=== PATIENT | female | born 1965 | race Caucasian/White ===

== ENCOUNTER 2020-08-18 08:45 | Outpatient (CLI) | payer OTHER, SELFPAY ==
--- NOTE | ~2020-08-18 | MM_ITS ---
EXAMINATION: MM screening liliam BI w anabel HISTORY: Screening TECHNIQUE: Craniocaudal and mediolateral oblique 3-D tomosynthesis images were obtained and synthetic 2-D images were generated. CAD analysis was submitted and interpreted. COMPARISON: Comparison to multiple prior studies sequentially, with oldest reviewed study dated 05/31. BREAST PARENCHYMAL COMPOSITION: There are scattered areas of fibroglandular density. FINDINGS: There is no evidence of suspicious mass, calcification, or architectural distortion to sugg est malignancy in either breast. There has been no suspicious interval change. IMPRESSION: 1. No mammographic evidence of malignancy. 2. Recommend routine screening mammography in one year. BI-RADS Category 1: Negative Reviewed, dictated and finalized at location A.
== END 2020-08-18 08:46 | disposition home or self-care (01) ==
LOC: ANHIMG 08:49
PROVIDERS: PCP Family Medicine; Visit Provider Family Medicine
DX: Z12.31 Encounter for screening mammogram for malignant neoplasm of breast (principal)
CPT/HCPCS: 77063; 77067

== ENCOUNTER 2020-12-04 09:42 | Emergency (ER) | payer OTHER, SELFPAY ==
--- NOTE | ~2020-12-04 | XR_ITS ---
EXAMINATION: XR ankle LT 2V DATE: 12/04/2020 10:09 INDICATION: Lateral left ankle pain post fall on ice TECHNIQUE: Anteroposterior and lateral views of the left ankle were obtained. COMPARISON: None. FINDINGS: Alignment is normal. No fracture. Joint spaces are normal. Small Achilles and plantar calcaneal spurs . Prominent soft tissue swelling anterior and lateral to the ankle with left ankle joint effusion. IMPRESSION: 1. No acute osseous abnormality. Reviewed, dictated and finalized at location B. S RECRUITER
[2020-12-04 09:50] VITALS: BP 147/98; PULSE 79; RESP 16; TEMP 37.2; O2SAT 95
--- NOTE | 2020-12-04 10:17 | ED.FALL ---
HPI - Fall General Chief Complaint: Extremity Injury, Lower Stated Complaint: L ankle pain Source: patient Mode of arrival: ambulatory Limitations: no limitations History of Present Illness HPI Narrative: patient is a 55-year-old female with history of hypertension, while outside pouring salt on her driveway she slipped on a patch of ice twisting her left ankle causing swelling and tenderness the lateral malleolus radiating into her lateral lower leg has good range of motion although tender and painful, pain level is currently well controlled since she took some NSAIDs prior to her arrival. There is no numbness or tingling has good range of motion and a good strong brisk pedal pulse on the left. complaint: fall Onset (ago): hour(s) Fall from: standing Fall witnessed: no Place fall occurred: home Loss of consciousness: none Prolonged down time: no Symptoms prior to fall: none Context: tripped/slipped ( slipped on ice) Related Data Allergies Allergy/AdvReac Type Severity Reaction Status Date / Time prednisone Allergy Unknown Verified 04/06/18 12:16 No Known Allergies Allergy Unverified 07/11/19 17:29 Review of Systems Review of Systems: All systems reviewed & are unremarkable except as noted in HPI and below PMFSH Past Medical History Medical History HTN (hypertension) Family History Family History Mother Hypertension Sibling Hypertension Grandparent Family history of cardiovascular disease Social History Social History Smoking status: Never smoker Alcohol intake: never Exam Const: General: no acute distress Orientation/consciousness: patient oriented x3 HENMT: Head: normal to inspection Eyes: Conjunctivae: conjunctivae normal Pupils: Equal, round and reactive pupils present EOM: EOMs intact bilaterally Neck: Neck: normal visual inspection Chest: Chest palpation & inspection: normal inspection of the chest Resp: Effort & Inspection: normal respiratory effort Cardio: Rate: regular rate Rhythm: regular rhythm GI: GI Palp: Yes Soft to palpation : General: Yes no CVA tenderness Back/Spine/Pelvis: Back: no CVA tenderness Skin: General skin exam: normal color Rashes: no rashes Neuro: General: patient oriented x3 Extrem: Other: mild swelling in the lateral malleolus with some pain and tenderness with palpation although has a good brisk pedal pulse on the left, with no numbness or tingling. Psych: Mental Status: mental status grossly normal Course Course Emergency Course: Patient after reassessment currently continues to be comfortable pain level is around 2, declined any pain medicine since she took some ibuprofen prior to arrival, ice was placed x-ray reviewed with patient and Landon wrap placed and advised to follow-up with her doctor if symptoms persist or worsen. Vital Signs Vital signs: Vital Signs Temperature 37.2 C 12/04/20 09:50 Pulse Rate 79 12/04/20 09:50 Respiratory Rate 16 12/04/20 09:50 Blood Pressure 147/98 H 12/04/20 09:50 Pulse Oximetry 95 12/04/20 09:50 Temperature 37.2 C 12/04/20 09:50 Pulse Rate 79 12/04/20 09:50 Respiratory Rate 16 12/04/20 09:50 Blood Pressure 147/98 H 12/04/20 09:50 Pulse Oximetry 95 12/04/20 09:50 Critical Care Time Critical Care Time Critical Care Time: No Discharge Plan Discharge Clinical Impression: Ankle sprain and strain Patient Disposition: Home, Self-Care Condition: Stable Instructions: Antibiotic Form, Ankle Sprain (ED) Additional Instructions: continue Landon wrap, Motrin or Tylenol for pain and inflammation, keep elevated while at rest and continue ice. Follow-up with primary care physician if symptoms persist or worsen. Prescriptions: No Action amlodipine-benazepril 10-20 mg capsule 1 cap PO DAILY
[2020-12-04 10:25] VITALS: RESP 16
== END 2020-12-04 10:40 | disposition home or self-care (01) ==
PROVIDERS: Emergency Provider Emergency Medicine; PCP Family Medicine
DX: S93.402A Sprain of unspecified ligament of left ankle, initial encounter (principal); W01.0XXA Fall on same level from slipping, tripping and stumbling without subsequent striking against object, initial encounter
CPT/HCPCS: 73600; 99282; 99283

== ENCOUNTER → 2020-12-13 07:28 | Outpatient (CLI) | payer OTHER, SELFPAY ==
--- NOTE | ~2020-12-13 | MR_ITS ---
EXAMINATION: MR ankle LT wo con DATE: 12/13/2020 08:30 INDICATION: Strain of unspecified muscle and tendon at ankle and foot level. Left ankle pain. TECHNIQUE: Magnetic resonance imaging (MRI) of the left ankle was performed without intravenous contr ast. Sequences included sagittal PD-weighted FS FSE, sagittal PD-weighted FSE, coronal PD-weighted FS FSE, coronal PD-weighted FSE, axial PD-weighted FS FSE, and axial PD-weighted FSE. COMPARISON: Left ankle radiographs 12/04/2020 FINDINGS: Medial ankle ligaments: The superficial and deep components of the deltoid ligament are intact. Lateral ankle ligaments: There are changes of prior lateral ankle sprain characterized by increased signal in anterior talofib ular ligament and thickening and increased signal in calcaneofibular ligament and anterior tibiofibul ar ligament. Posterior talofibular ligament is normal. Posterior tibiofibular ligament is intact. Tendons: There is mild Achilles tendinopathy. There is mild tenosynovitis of posterior tibial tendon. The ante rior ankle tendons are normal. There is mild peroneus longus tendinopathy. Plantar fascia: Normal. There is an enthesophyte at the calcaneal attachment. Bones/other: There is a nondisplaced oblique fracture of distal fibula with medial aspect of the fracture line 2 m m distal to the level of the tibial plafond. There is bone marrow edema of posterior malleolus, consi stent with stress reaction. Fluid: There are small ankle and subtalar joint effusions. There is subcutaneous edema about the ankle and i n the dorsum of the foot. IMPRESSION: 1. Nondisplaced oblique fracture of distal fibula. 2. Changes of lateral ankle sprain. Reviewed, dictated and finalized at location A. L OFFICER
== END ==
PROVIDERS: PCP Family Medicine; Visit Provider Family Medicine
DX: S82.435A Nondisplaced oblique fracture of shaft of left fibula, initial encounter for closed fracture (principal)
CPT/HCPCS: 73721

== ENCOUNTER → 2021-03-02 10:04 | Outpatient (CLI) | payer OTHER, SELFPAY ==
--- NOTE | ~2021-03-02 | US_ITS ---
US abdomen limited INDICATION: Right upper quadrant abdominal pain PROCEDURE: Realtime right upper abdominal ultrasound. COMPARISON: No prior studies for comparison. FINDINGS: The pancreas is normal without focal mass or pancreatic ductal dilation. Echotexture is in creased, consistent with fatty infiltration. There is normal directional flow in the portal vein. The gallbladder is normal without stones, gallbladder wall thickening or pericholecystic fluid. Comm on bile duct measures 4 mm. No sonographic Ledezma's sign. IMPRESSION: 1: Hepatic steatosis. Reviewed, dictated and finalized at location B. IMPRESSION: 1: Hepatic steatosis.
== END ==
PROVIDERS: PCP Family Medicine; Visit Provider Physician Assistant Medical
DX: R10.11 Right upper quadrant pain (principal); K76.0 Fatty (change of) liver, not elsewhere classified
CPT/HCPCS: 76705

== ENCOUNTER 2021-03-12 06:57 | Outpatient (CLI) | payer OTHER, SELFPAY ==
--- NOTE | ~2021-03-12 | NM_ITS ---
EXAMINATION: NM hepatobiliary wo pharm DATE: 03/12/2021 09:28 INDICATION: Right upper quadrant abdominal pain COMPARISON: None. TECHNIQUE: 5.1 mCi Tc-99m mebrofenin (Choletec) was administered intravenously. Scintigraphic images of the abdomen were obtained for one hour. At the 1 hour time point, the patient drank 8 oz Ensure, and imaging was continued for 60 minutes. Gallbladder ejection fraction was calculated by the technol ogist. FINDINGS: There is normal clearance of radiotracer from the blood pool. There is homogeneous tracer u ptake by the liver. Activity progresses to the bowel and gallbladder. The gallbladder ejection fract ion (GBEF) is 61%. Note that with this technique, normal GBEF >= 33%. IMPRESSION: 1. Normal hepatobiliary scan. Reviewed, dictated and finalized at location A.
== END 2021-03-12 06:58 | disposition home or self-care (01) ==
PROVIDERS: PCP Family Medicine; Visit Provider Physician Assistant Medical
DX: R10.11 Right upper quadrant pain (principal)
CPT/HCPCS: 78226; A9537

== ENCOUNTER → 2021-06-12 01:09 | Outpatient (CLI) | payer OTHER, SELFPAY ==
[2021-06-13 00:10] LABS: SARS-CoV-2 RNA PCR Negative
== END ==
PROVIDERS: PCP Family Medicine; Visit Provider Internal Medicine Gastroenterology
DX: Z01.812 Encounter for preprocedural laboratory examination (principal); Z20.822 Contact with and (suspected) exposure to COVID-19
CPT/HCPCS: C9803; U0003; U0005

== ENCOUNTER 2021-06-15 03:18 | Day surgery (SDC) | payer OTHER, SELFPAY ==
[2021-06-11 13:47] VITALS: BMI 27.8
--- NOTE | 2021-06-12 17:40 | WPDANESEPP ---
Anes - Eval Pre Procedure Procedure: Operation Date: 06/15/21 14:00 Proposed Procedures p Esophagogastroduodenoscopy - Toni Ordoñez MD Date/Time: 06/12/21 17:40 Pre Op Diagnosis: GERD, Dysphagia Patient Data Age: 56 Gender: F Height: 1.65 m Weight: 76 kg Allergies Allergy/AdvReac Type Severity Reaction Status Date / Time COVID-19 vaccine, mRNA, AdvReac Intermediate trigeminal Verified 06/11/21 13:46 [id number], neuralgia [COVID-19 vaccine, ( left mRNA-1273, LNP-S] face) Home Medications Medication Instructions Recorded Confirmed Type omeprazole 40 mg capsule,delayed 40 mg PO .q am #90 cap 03/12/21 06/11/21 Rx release amlodipine-benazepril 1 cap PO DAILY 06/11/21 06/11/21 History Patient hx anesthesia problems: none Family hx anesthesia problems: none PMFSH Past Medical History Medical History Carpal tunnel syndrome Endometriosis, site unspecified HTN (hypertension) Sicca syndrome, unspecified Trigeminal neuralgia Surgical History Surgical History (Updated 06/12/21 @ 17:40 by Nnamdi Calvo DO) H/O total hysterectomy (~2016) History of appendectomy Family History Family History (Updated 05/18/21 @ 14:25 by Poonam Yoder MA) Mother Hypertension Sibling Hypertension Grandparent Family history of cardiovascular disease Lung cancer Hypertension Pancreatic lymphoma Social History Social History (Updated 05/18/21 @ 14:26 by Poonam Yoder MA) Smoking status: Never smoker Alcohol intake: never Substance use: never Gender identity (if verbalized by the patient): Female Spiritual care concerns: No Agree to blood products: Yes Exam Day of Procedure 06/12/21 17:40
[2021-06-15 11:49] VITALS: BP 134/83; PULSE 68; RESP 16; TEMP 36.2; O2SAT 97
--- NOTE | 2021-06-15 11:54 | WPDANESEFPP ---
Anes - Eval Final PreProcedure Day of Procedure 06/15/21 11:54 Patient weight: overweight Heart: regular rate and rhythm Lungs: clear to auscultation Airway: Mallampati scale class II Neurological: alert and oriented Last oral intake: >/= 8 hours ASA classification: II Emergent: no Anesthetic plan: proceed Anesthesia type and monitoring: general GIVS and standard monitoring Informed Consent: The patient's anesthetic plan and its attendant risks and benefits were discussed with the patient/family/POA. Questions were solicited and answers provided to the satisfaction of the patient/family/POA.
[2021-06-15] MEDS: LACTATED RINGERS 1,000 ML 150 ML IV CONT (11:55)
--- NOTE | 2021-06-15 12:00 | PM.HPGS ---
History of Present Illness History of Present Illness Consent: Risks, benefits, and alternatives have been discussed and questions answered. Patient agrees to proceed with procedure. Chief complaint: GERD, Dysphagia Narrative: Samantha Savage is a 56 year old female who has had epigastric pain and fullness that comes on after meals. It radiates up towards the esophagus. She denies dysphagia except for pills. Review of Systems Review of Systems: All systems reviewed & are unremarkable except as noted in HPI and below PMFSH Past Medical History Medical History Carpal tunnel syndrome Endometriosis, site unspecified HTN (hypertension) Sicca syndrome, unspecified Trigeminal neuralgia Surgical History Surgical History H/O total hysterectomy (~2017) History of appendectomy Family History Family History Mother Hypertension Sibling Hypertension Grandparent Family history of cardiovascular disease Lung cancer Hypertension Pancreatic lymphoma Social History Social History Smoking status: Never smoker Alcohol intake: never Substance use: never Living arrangements: alone Gender identity (if verbalized by the patient): Female Spiritual care concerns: No Agree to blood products: Yes Meds Home Medications and Allergies Home Medications Medication Instructions Recorded Confirmed Type omeprazole 40 mg capsule,delayed 40 mg PO .q am #90 cap 03/12/21 06/11/21 Rx release amlodipine-benazepril 1 cap PO DAILY 06/11/21 06/11/21 History Allergies Allergy/AdvReac Type Severity Reaction Status Date / Time COVID-19 vaccine, mRNA, AdvReac Intermediate trigeminal Verified 06/15/21 11:45 [id number], neuralgia [COVID-19 vaccine, ( left mRNA-1273, LNP-S] face) Vital Signs Vital Signs - 24 hr 06/15/21 11:49 Temperature 36.2 C L Pulse Rate 68 Respiratory Rate 16 Blood Pressure 134/83 Pulse Oximetry 97 Exam Const: General: alert Orientation/consciousness: patient oriented x3 Resp: Auscultation: clear to auscultation bilaterally Cardio: Rhythm: regular rhythm GI: GI Palp: Yes Soft to palpation and No Tenderness to palpation present (GI) Neuro: General: patient oriented x3 Assessment and Plan Assessment and plan (1) Epigastric pain: Code(s): R10.13 - Epigastric pain Status: Acute Assessment and Plan: EGD with possible biopsy or dilatation or cautery.
[2021-06-15] MEDS: BENZOCAINE (*SP) 60 ML SPRAY CAN (HURRICAINE) 1 SPRAY MUCOUS MEM (12:38)
[2021-06-15 12:52] VITALS: BP 110/75; PULSE 69; RESP 19; O2SAT 94
[2021-06-15 13:02] VITALS: BP 112/79; PULSE 67; RESP 19; O2SAT 95
[2021-06-15 13:12] VITALS: BP 130/91; PULSE 64; RESP 17; O2SAT 98
--- NOTE | 2021-06-15 13:16 | SUR.PHASEII ---
Per Dr. Ordoñez, pt can stop Prilosec.
== END 2021-06-15 13:29 | disposition home or self-care (01) ==
PROVIDERS: PCP Family Medicine; Visit Provider Internal Medicine Gastroenterology
PROC: 0DJ08ZZ Inspection of Upper Intestinal Tract, Via Natural or Artificial Opening Endoscopic (ICD-10-PCS; CPT 43235; principal; 2021-06-15 14:00)
DX: K21.9 Gastro-esophageal reflux disease without esophagitis (principal); K29.00 Acute gastritis without bleeding; R13.10 Dysphagia, unspecified; I10 Essential (primary) hypertension; G50.0 Trigeminal neuralgia
CPT/HCPCS: 43239; 88305; 88342; C9803; J2704; J7120; U0003; U0005

== ENCOUNTER 2021-09-17 09:06 | Outpatient (CLI) | payer OTHER, SELFPAY ==
--- NOTE | ~2021-09-17 | MM_ITS ---
EXAMINATION: MM screening liliam BI w anabel HISTORY: Screening mammogram TECHNIQUE: Craniocaudal and mediolateral oblique 3-D tomosynthesis images were obtained and synthetic 2-D images were generated. CAD analysis was submitted and interpreted. COMPARISON: 08/18/2020, 06/12/2019, 06/09/2018, 05/31/2014 bilateral screening mammogram examinations BREAST PARENCHYMAL COMPOSITION: There are scattered areas of fibroglandular density. FINDINGS: Diminished size and density of a posterior opacity in the upper breast on MLO view since pr ior mammograms dating back to 05/31/2014. There is no evidence of suspicious mass, calcification, or a rchitectural distortion to suggest malignancy in either breast. There has been no suspicious interval change. IMPRESSION: 1. No mammographic evidence of malignancy. 2. Recommend routine screening mammography in one year. BI-RADS Category 2: Benign finding(s). Reviewed, dictated and finalized at location A. STRESS FITTER
== END 2021-09-17 09:07 | disposition home or self-care (01) ==
LOC: ANHIMG 09:09
PROVIDERS: PCP Family Medicine; Visit Provider Obstetrics & Gynecology
DX: Z12.31 Encounter for screening mammogram for malignant neoplasm of breast (principal)
CPT/HCPCS: 77063; 77067

== ENCOUNTER 2021-09-24 17:07 | Emergency (ER) | payer OTHER, SELFPAY ==
[2021-09-24 17:19] VITALS: BP 136/89; PULSE 74; RESP 12; TEMP 36.3; O2SAT 99
--- NOTE | 2021-09-24 17:38 | ED.EAR ---
HPI - Ear Problem General Chief complaint: Ear Stated complaint: ear pain/sore throat Source: patient Mode of arrival: ambulatory Limitations: no limitations History of Present Illness HPI Narrative: Patient is a 56-year-old female who presents complaining of right ear pain x2 days. She also reports sore throat starting this a.m. 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 She reports weekly tested for Covid, negative results earlier this week. She denies all other complaints at this time. MD Complaint: ear pain Related Data Home Medications Medication Instructions Recorded Confirmed amlodipine-benazepril 1 cap PO DAILY 06/11/21 09/24/21 Allergies Allergy/AdvReac Type Severity Reaction Status Date / Time COVID-19 vaccine, mRNA, AdvReac Intermediate trigeminal Verified 09/24/21 17:20 [id number], neuralgia [COVID-19 vaccine, ( left mRNA-1273, LNP-S] face) Review of Systems Review of Systems: CONSTITUTIONAL: Denies fever, chills, or sweats. EYES: Denies visual changes, redness, or discharge. ENT: Reports right otalgia and sore throat CARDIOVASCULAR: Denies chest pain, palpitations, or edema. RESPIRATORY: Denies cough or dyspnea. GASTROINTESTINAL: Denies abdominal pain, nausea, vomiting, or diarrhea. GENITOURINARY: Denies dysuria or hematuria. SKIN: Denies rash or itching. MUSCULOSKELETAL: Denies back pain, joint pain, or myalgia. NEUROLOGIC: Denies headache, numbness, dizziness, or weakness. PSYCHIATRIC: Denies anxiety or depression. [facility] Past Medical History Medical History Carpal tunnel syndrome Endometriosis, site unspecified HTN (hypertension) Sicca syndrome, unspecified Trigeminal neuralgia Surgical History Surgical History H/O total hysterectomy (~2017) History of appendectomy Family History Family History Mother Hypertension Sibling Hypertension Grandparent Family history of cardiovascular disease Lung cancer Hypertension Pancreatic lymphoma Social History Social History Smoking status: Never smoker Alcohol intake: never Substance use: never Gender identity (if verbalized by the patient): Female Spiritual care concerns: No Agree to blood products: Yes Comments At the time of signature, I have reviewed and agree with nursing past medical, surgical, social, and family history unless otherwise noted. Please see nursing chart for further information. There is no relevant family history pertinent to the presenting complaint. Exam Narrative: GENERAL: Well-appearing, well-nourished, and in no acute distress. HEAD: Normocephalic, atraumatic. EYES: EOMI. No redness or drainage. Conjunctiva are normal. ENT: Mucous membranes pink and moist. Nares clear. No rhinorrhea. Right TM cloudy, bulging and injected. Left TM normal. Throat mild erythema. Uvula midline. NECK: AROM. Supple. No lymphadenopathy. CHEST: No respiratory distress. HEART: Regular rate and rhythm. EXTREMITIES: Normal range of motion. No edema. SKIN: Warm, dry, no rash. NEURO: No focal deficits. Alert and oriented x3. Gait steady. PSYCH: Normal affect. No signs of depression or anxiety. Course Vital Signs Vital signs: Vital Signs Temperature 36.3 C L 09/24/21 17:19 Pulse Rate 74 09/24/21 17:19 Respiratory Rate 12 09/24/21 17:19 Blood Pressure 136/89 09/24/21 17:19 Pulse Oximetry 99 09/24/21 17:19 Temperature 36.3 C L 09/24/21 17:19 Pulse Rate 74 09/24/21 17:19 Respiratory Rate 12 09/24/21 17:19 Blood Pressure 136/89 09/24/21 17:19 Pulse Oximetry 99 09/24/21 17:19 Reviewed-patient is informed that they may have pre-hypertension or hypertension based on a blood pressure reading. I r
== END 2021-09-24 17:54 | disposition home or self-care (01) ==
PROVIDERS: Emergency Provider Nurse Practitioner; PCP Family Medicine
DX: H66.91 Otitis media, unspecified, right ear (principal); N80.9 Endometriosis, unspecified; I10 Essential (primary) hypertension; M35.00 Sjogren syndrome, unspecified; Z90.710 Acquired absence of both cervix and uterus
CPT/HCPCS: 99213; G0463